=== PATIENT | female | born 1945 | race African-American/Black ===

== ENCOUNTER → 2016-12-30 11:00 | Outpatient (CLI) | payer MEDICARE ==
[2016-05-30 01:18] VITALS: BMI 29.7
[~2016-12-30 11:00] MED LIST: ALLER-CHLOR4 MG PO; ATIVAN0.5 MG PO; ATIVAN1 MG PO; BAYER CHEWABLE81 MG PO; CATAPRES TTS-10.1 MG TRANSDERM; CATAPRES0.1 MG PO; CATAPRES0.3 MG PO; CYMBALTA60 MG PO; DILAUDID2 MG PO; FLAGYL250 MG PO; HYDRALAZINE HCL25 MG PO; HYDRALAZINE HCL50 MG PO; K-TAB10 MEQ PO; LASIX20 MG PO; LEVAQUIN500 MG PO; LISINOPRIL10 MG PO; MEGACE40 MG PO; NEURONTIN 300300 MG PO; NICODERM C1 PATCH .1 TRANSDERM; NORVASC2.5 MG PO; NORVASC5 MG PO; OMEPRAZOLE20 M1 PO; OXYCONTIN10 MG PO; PERCOCET 10/3251 TA1 PO; PRILOSEC10 MG PO; PRILOSEC20 MG PO; REVLIMID5 MG PO; TENEX1 MG PO; TRANDATE200 MG PO; ULTRAM50 MG PO; ZESTRIL40 MG PO
== END | disposition home or self-care (01) ==
LOC: D.RAD 10:30
DX: D64.9 Anemia, unspecified (principal)

== ENCOUNTER 2017-03-31 16:35 | Inpatient (IN) | payer MEDICARE ==
[2017-03-31] VITALS (11 sets, daily range): BP systolic 123–148; BP diastolic 72–88; BMI 30.4
[~2017-03-31] VITALS: Ht 167.6 cm; Wt 86.8 kg
[2017-03-31 17:29] LABS: BASOPHILS 0.2 % (0-2); EOSINOPHILS 0.8 % (0-7); HEMATOCRIT 34.7 % (36.0-48.0); HEMOGLOBIN 11.7 g/dL (12-16); IMMATURE GRANULOCYTES 0.2 % (0-5); MCHC 33.7 g/dL (31.0-37.0); MEAN PLATELET VOLUME 9.7 fL (7.4-10.4); MONOCYTES 10.5 % (2-11); NEUTROPHILS 51.3 % (40-80); RBC 3.77 10x6/uL (4.00-5.40); RDW 13.5 % (11.5-14.5); WBC 6.6 10x3/uL (4.8-10.8)
[2017-03-31 17:30] LABS: PLATELET COUNT 282 10x3/uL (130-400)
[2017-03-31 17:51] LABS: ALBUMIN 3.2 g/dL (3.4-5.0); ANION GAP 9.1 mmol/L (8-16); BILIRUBIN - TOTAL 0.19 mg/dL (0.2-1.3); CALCIUM 10.7 mg/dL (8.5-10.1); CREATININE - SERUM 1.4 mg/dL (0.6-1.3); POTASSIUM - SERUM 3.1 mmol/L (3.5-5.1); PROTEIN - SERUM 8.6 g/dL (6.4-8.2)
--- NOTE | 2017-03-31 20:00 | NUR ---
PT ARRIVED VIA BED AND ER STAFF. AOX4. SWOLLEN TONGUE CAUSING SLURRED SPEECH. VSS. AEROSOL MASK @ 30%, SPO2 98. RESPIRATIONS NON LABORED. LUNG SOUNDS CLEAR/DIMINISHED. PERIPHERAL PULSES PRESENT. BOWEL SOUNDS ACTIVE IN ALL QUADS. PT REPOSITIONS SELF INDEPENDENTLY. PT DENIES NEEDS AT THIS TIME. CALL LIGHT AND BEDSIDE TABLE WITHIN PT REACH. CPOC.
--- NOTE | 2017-03-31 20:10 | NUR ---
DR. DEVINE AT BEDSIDE.
[2017-03-31] MEDS ORDERED: NORVASC5 MG PO (20:22)
--- NOTE | 2017-03-31 21:00 | NUR ---
LUNG SOUNDS REMAIN CLEAR/DIMINISHED. PT RESTING QUIETLY WITH EYES CLOSED AND VSS. NO S/S OF ACUTE DISTRESS AT THIS TIME. CALL LIGHT AND BEDSIDE TABLE WITHIN PT REACH. CPOC.
--- NOTE | 2017-03-31 23:30 | NUR ---
REASSESSMENT COMPLETE, SEE FLOWSHEET FOR ALL FINDINGS. NO ACUTE CHANGES AT THIS TIME. PT RESTING QUIETLY WITH EYES CLOSED AND VSS. LUNG SOUNDS CLEAR/DIMINSHED. SOP2 98. NO S/S OF DISTRESS AT THIS TIME. CALL LIGHT AND BEDSIDE TABLE WITHIN PT REACH. CPOC.
[2017-04-01] VITALS (26 sets, daily range): BP systolic 97–144; BP diastolic 58–84; Ht 167.6 cm; Wt 86.8 kg
--- NOTE | 2017-04-01 | NUR ---
PARTIAL LINEN CHANGE COMPLETE. VSS, NO S/S OF ACUTE DISTRESS AT THIS TIME. LUNG SOUNDS REMAIN CLEAR/DIMINISHED. CPOC
--- NOTE | 2017-04-01 01:00 | NUR ---
LUNG SOUNDS REMAIN CLEAR BILATERALLY. RESPIRATIONS NONLABORED, SPO2 99. NO S/S OF ACUTE DISTRESS AT THIS TIME. PARTIAL LINEN CHANGE COMPLETE AT THIS TIME. DENIES FURTHER NEEDS AT THIS TIME. CALL LIGHT AND BEDSIDE TABLE WITHIN PT REACH. CPOC.
--- NOTE | 2017-04-01 03:00 | NUR ---
REASSESSMENT COMPLETE, NO ACUTE CHANGES AT THIS TIME. LUNG SOUNDS CLEAR/DIMINISHED. SWELLING STARTING TO DECREASE IN TONGUE, SPEECH BECOMING MORE CLEAR. PT REPOSITIONED FOR COMFORT. DENIES FURTHER NEEDS AT THIS TIME. CALL LIGHT AND BEDSIDE TABLE WITHIN PT REACH. CPOC.
[2017-04-01 04:53] LABS: BASOPHILS 0 % (0-2); EOSINOPHILS 0 % (0-7); HEMATOCRIT 33.6 % (36.0-48.0); HEMOGLOBIN 11.2 g/dL (12-16); IMMATURE GRANULOCYTES 0.2 % (0-5); LYMPHOCYTES 17.9 % (15-50); MCH 30.8 pg (26.0-34.0); MCHC 33.3 g/dL (31.0-37.0); MCV 92.3 fL (80.0-100.0); MEAN PLATELET VOLUME 9.9 fL (7.4-10.4); MONOCYTES 0.6 % (2-11); NEUTROPHILS 81.3 % (40-80); PLATELET COUNT 259 10x3/uL (130-400); RBC 3.64 10x6/uL (4.00-5.40); RDW 13.3 % (11.5-14.5); WBC 6.3 10x3/uL (4.8-10.8)
[2017-04-01 05:29] LABS: C-REACTIVE PROTEIN 0.2 mg/dL (0.0-0.9); CALCIUM 9.9 mg/dL (8.5-10.1); CARBON DIOXIDE 29.9 mmol/L (21.0-32.0); CHLORIDE - SERUM 103 mmol/L (98-107); CREATININE - SERUM 1.4 mg/dL (0.6-1.3); MAGNESIUM - SERUM 1.6 mg/dL (1.8-2.4); PHOSPHOROUS 4.2 mg/dL (2.5-4.9); PRO BNP 140 pg/mL (0-125); SODIUM 142 mmol/L (136-145); UREA NITROGEN 10 mg/dL (7-18); eGFR NON AFRICAN AMERICAN 39 mL/min (90-120)
[2017-04-01 05:32] LABS: CALC OSMOLALITY 285 mosm/kg (275-300); GLUCOSE 166 mg/dL (74-106); POTASSIUM - SERUM 2.9 mmol/L (3.5-5.1); TROPONIN-I < 0.017 ng/mL (0.000-0.060)
--- NOTE | 2017-04-01 07:20 | NUR ---
RT AT BEDSIDE FOR EKG.
--- NOTE | 2017-04-01 07:30 | NUR ---
SHIFT ASSESSMENT VIA FLOWSHEET, SEE FOR DETAILS.
[2017-04-01 07:33] LABS: ERYTHROCYTE SEDIMENTATION RATE 71 mm/hr (0-30)
--- NOTE | 2017-04-01 09:05 | NUR ---
NO VISITORS AT THIS TIME. PT REPOSTIONS INDEPENDENTLY IN BED. VOICES NO ADDITIONAL NEEDS AT THIS TIME.
--- NOTE | 2017-04-01 09:40 | NUR ---
AEROSOL MASK D/C'D PER DR ROJAS. PT ON ROOM AIR. SPO2 100%, WILL PROVIDE SUPPLEMENTAL O2 PRN.
--- NOTE | 2017-04-01 12:00 | NUR ---
REASSESSMENT VIA FLOWSHEET, SEE FOR DETAILS.
--- NOTE | 2017-04-01 12:12 | NUR ---
NO VISITORS AT THIS TIME. LUNCH TRAY PROVIDED, PT INDICATES SHE ONLY WANTS TO DRINK ENSURE. VSS.
--- NOTE | 2017-04-01 15:30 | NUR ---
REASSESSMENT VIA FLOWSHEET, SEE FOR DETAILS.
--- NOTE | 2017-04-01 16:40 | NUR ---
DINNER TRAY PROVIDED. VSS, ON CM.
--- NOTE | 2017-04-01 19:00 | NUR ---
REPORT RECEIVED AND ASSESSMENT COMPLETED. PT IN ROOM WATCHING TV. NO SIGNS OF RESPIRATORY DISTRESS. O2 AT 975 ON ROOM AIR. MINIMAL SWELLING NOTED. LUNG SOUNDS CLEAR. DIMINISHED IN LOWER LOBES. VSS. WILL CONTINUE TO MONITOR FOR COMPLICATIONS THROUGHOUT THE SHIFT
--- NOTE | 2017-04-01 21:00 | NUR ---
COMPLETE BEDBATH AND LINEN CHANGE PROVIDED. NO OTHER CHANGES IN STATUS AT THIS TIME,. VSS WILL CONTINUE TO MONITOR THROUGHOUT SHIFT.
--- NOTE | 2017-04-01 23:05 | NUR ---
REASSESSMENT COMPLETED. SEE FLOWSHEET FOR FULL DETAILS. VSS. WILL CONTINUE TO MONITOR THROUGHOUT SHIFT
[2017-04-02] VITALS (13 sets, daily range): BP systolic 106–141; BP diastolic 54–83
--- NOTE | 2017-04-02 01:00 | NUR ---
ASSISTED PT TO BRATHROOM. NO OTHER CHANGES IN STATUS AT THIS TIME. VSS. WILL CONTINUE TO MONITOR
--- NOTE | 2017-04-02 03:00 | NUR ---
REASSESSMENT [id number]. SEE FLOWSHEET FOR FULL DETAILS. NO OTHER CHANGES IN STATUS AT THIS TIME. VSS. WILL MONITOR
[2017-04-02 04:56] LABS: BASOPHILS 0 % (0-2); EOSINOPHILS 0 % (0-7); HEMOGLOBIN 10.8 g/dL (12-16); IMMATURE GRANULOCYTES 0.3 % (0-5); LYMPHOCYTES 6.1 % (15-50); MCH 31.3 pg (26.0-34.0); MCHC 33.8 g/dL (31.0-37.0); MCV 92.8 fL (80.0-100.0); MEAN PLATELET VOLUME 9.4 fL (7.4-10.4); MONOCYTES 3.6 % (2-11); PLATELET COUNT 261 10x3/uL (130-400); RBC 3.45 10x6/uL (4.00-5.40); RDW 13.6 % (11.5-14.5)
[2017-04-02 04:57] LABS: WBC 15.4 10x3/uL (4.8-10.8)
--- NOTE | 2017-04-02 05:00 | NUR ---
LABS DRAWN AND SENT OFF. AWAITING RESULTS FOR ELECTROLYTE PROTOCOL. PT HAS SLEPT QUIETLY THROUGH EVENING ONLY GETTING UP TO VOID. PT HAS GOTTEN UP TO USE RESTROOM INDEPENDENTLY DESPITE BEING DIRECTED OTHERWISE. BED ALARM ON. WILL MONITOR CLOSELY
[2017-04-02 05:18] LABS: ANION GAP 10.8 mmol/L (8-16); CARBON DIOXIDE 28.6 mmol/L (21.0-32.0); CREATININE - SERUM 1.2 mg/dL (0.6-1.3); POTASSIUM - SERUM 3.4 mmol/L (3.5-5.1)
[2017-04-02 05:20] LABS: PHOSPHOROUS 1.9 mg/dL (2.5-4.9)
--- NOTE | 2017-04-02 07:40 | NUR ---
UP TO CHAIR FOR BREAKFAST AFTER ASSISTING TO BATHROOM. DENIES FURTHER NEEDS.
--- NOTE | 2017-04-02 10:39 | NUR ---
* Is the patient Alert and Oriented? Yes 0 * How many steps to enter\exit or inside your home? 0 0 * PCP Dr. Wyatt 0 * Pharmacy [facility] by the track 0 * Preadmission Environment Home with Family 0 * ADLs Independent 0 * Equipment Cane 0 * List name and contact numbers for known caregivers / representatives who currently or will assist patient after discharge: Edgard Au [phone] 0 * Additional services required to return to the preadmission environment? No 0 * Can the patient safely return to the preadmission environment? Yes 0 * Has this patient been hospitalized within the prior 30 days at any hospital? No 04/02/2017 10:32 DCP: Discharge Planning Patient Name: MAGDIEL STAFFORD Admission Status: ER Accout number: [id number] Admission Date: 04-01-2017 : 1945 Admission Diagnosis: Attending: JD Current LOS: 1 Anticipated DC Date: 04-03-2017 Planned Disposition: Home Primary Insurance: [employer] CHO[employer] PPO [facility] Discharge Planning Comments: CM met with patient to assess dc plans/needs. Patient states she lives at home with her adult daughter. She is independent with all ADL's & IADL's. She uses a cane for assistance with mobility. She has not had home health services in the past. At dc, she will return home with her daughter. No needs identified or verbalized at this time. CM will follow. Manager Consumer Insights: Veronica Dunham
--- NOTE | 2017-04-02 12:36 | NUR ---
REMAINS UP IN CHAIR FOR LUNCH.
--- NOTE | 2017-04-02 14:16 | NUR ---
Nutrition follow-up: Diet: low sodium 4 gm PO intake 25-50% of meals Labs reviewed RDN following.
--- NOTE | 2017-04-02 19:30 | NUR ---
REPORT RECVD. CARE ASSUMED. INITIAL ASSMNT COMPLETED. SEE FLOWSHEET FOR ALL FINDINGS. AWAKE AND AOX4. RESP EVEN AND UNLABORE. SPO2 95% ON ROOM AIR. OCC PROD COUGH NOTED. AFEBRILE. SR ON THE MONITOR. UP WITH MINIMAL ASSIST TO BR. VSS. DENIES NEEDS. HOB UP. C/L IN REACH. BED ALARM ON. REPOSITIONS INDEPENDENTLY IN BED. CONT CURRENT POC.
--- NOTE | 2017-04-02 21:30 | NUR ---
HS MEDS GIVEN. FAMILY AT BEDSIDE. UPDATE GIVEN. TEACHING DONE. VSS. HOB UP. C/L IN REACH. CONT CURRENT POC.
--- NOTE | 2017-04-02 23:45 | NUR ---
USING C/L TO REQUEST ASSIST TO BR TO VOID. PRN TRAMADOL EFFECTIVE WITH PAIN CONTROL. VSS. POSITIONS SELF IN BED. HOB UP. C/L IN REACH. CONT CURRENT POC.
[2017-04-03] VITALS: BP 148/80
--- NOTE | 2017-04-03 01:00 | NUR ---
RESTING WITH NO DISTRESS. NO NEEDS VOICED. C/L IN REACH. VSS. CONT POC.
[2017-04-03 03:00] VITALS: BP 152/86
--- NOTE | 2017-04-03 03:48 | NUR ---
RESTING IN BED WITH NO DISTRESS. USING C/L TO WAIT FOR MINIMAL ASSIST TO BR TO COID NO DIFF. VSS. HOB UP. C/L IN REACH. CONT CURRENT POC.
--- NOTE | 2017-04-03 05:35 | NUR ---
UP TO BR TO VOID. MINIMAL ASSIST. VSS. DENIES NEEDS. HOB UP. C/L IN REACH. CONT CURRENT POC.
[2017-04-03 05:57] LABS: BASOPHILS 0 % (0-2); EOSINOPHILS 0 % (0-7); HEMATOCRIT 32.9 % (36.0-48.0); HEMOGLOBIN 11.1 g/dL (12-16); IMMATURE GRANULOCYTES 0.3 % (0-5); LYMPHOCYTES 18.5 % (15-50); MCH 31.3 pg (26.0-34.0); MCHC 33.7 g/dL (31.0-37.0); MCV 92.7 fL (80.0-100.0); MEAN PLATELET VOLUME 9.7 fL (7.4-10.4); MONOCYTES 8.6 % (2-11); NEUTROPHILS 72.6 % (40-80); PLATELET COUNT 270 10x3/uL (130-400); RBC 3.55 10x6/uL (4.00-5.40); RDW 13.8 % (11.5-14.5); WBC 15.4 10x3/uL (4.8-10.8)
[2017-04-03 06:08] LABS: ANION GAP 10.6 mmol/L (8-16); CALCIUM 8.8 mg/dL (8.5-10.1); CARBON DIOXIDE 28.5 mmol/L (21.0-32.0); PHOSPHOROUS 2.1 mg/dL (2.5-4.9); POTASSIUM - SERUM 3.1 mmol/L (3.5-5.1)
--- NOTE | 2017-04-03 06:26 | NUR ---
PO K+ GIVEN PER ELECTROLYTE PROTOCOL
--- NOTE | 2017-04-03 06:40 | NUR ---
PO PHOS GIVEN
[2017-04-03 07:00] VITALS: BP 146/86
--- NOTE | 2017-04-03 08:33 | EC ---
PATIENT:MAGDIEL STAFFORD DATE OF SERVICE: 04/01/17 SEX: F MEDICAL RECORD: [id number] DATE OF : 43 LOCATION:[place] [address] AGE OF PATIENT: 71 ADMISSION DATE: 04/01/17 REFERRING PHYSICIAN: INTERPRETING PHYSICIAN: CHANO MOROCHO MD ECHOCARDIOGRAM REPORT ECHO CHARGES 4 ECHO COMPLETE CLINICAL DIAGNOSIS: SOB HX OF CAD/STENT/HTN ECHOCARDIOGRAPHIC MEASUREMENTS (adult normal given) AC root (d.<3.7cm) 3.6 LV Septum d (<1.2 cm> 1.6 Valve Excursion 2.0 LV Septum (systole) 1.8 Left Atria (s.<4.0cm> 3.7 LVPW d(<1.2cm) 1.6 RV (d.<2.3cm) 3.0 LVPW (sytole) 1.9 LV diastole(<5.6CM) 4.3 MV E-F(>70mm/sec) LV systole 2.7 LVOT Diameter 1.5 MV exc.(>10mm) Est.ejection fraction (50-75%) Pericardial Effusion N DOPPLER: LVIT A 112 E 71.0 LA RVSP 21 LVOT 116 AOP1/2T Asc. Ao 149 RVOT 121 RA PA 115 AV Gradient Peak 8.89 AV Mean 4.24 AV Area 1.5 MV Gradient Peak 7.55 MV Mean 3.65 MV Area COMMENTS: Marble Machine Operator: Girma PERERA Safety Relief Valve Technician:1 Dr. Morocho TAPE# PACS TWO-DIMENSIONAL ECHOCARDIOGRAM WITH DOPPLER 1. Left ventricular chamber size is within normal limits. Left ventricular systolic function is normal. Overall ejection fraction is estimated at 60 percent. 2. Left atrium, right atrium, and right ventricular chamber sizes are within normal limits. 3. Valvular structures have normal structure and motion. 4. Doppler interrogation reveals trace to mild mitral regurgitation, trace to mild tricuspid regurgitation; no other valvular insufficiency or stenosis. 5. No evidence of pericardial effusion or left ventricular thrombus. ECHOCARDIOGRAM REPORT [id number] MAGDIEL STAFFORD CHANO EGAN MD at 0833 CC: [id number] DICTATION DATE: 04/02/172100 DRY END TESTER: ROSARIO 04/02/17 2100 ADM IN [facility] [address] [facility] [place] [address]
[2017-04-03] MEDS ORDERED: PREDNISONE20 MG PO (11:29)
--- NOTE | 2017-04-03 11:57 | NUR ---
IP DEACCESSED. DC REVIEWED WITH PT AND DAUGHTER. NO QUESTIONS. PT DC'D HOME.
== END 2017-04-03 12:17 | disposition home or self-care (01) | DRG 918 ==
LOC: D.ER 16:35 → D.CVICU 18:34 → OBSVTIME 18:34 → D.CVICU 18:34
PROVIDERS: Emergency Medicine; Internal Medicine Pulmonary Disease; ADMIT Emergency Medicine
DX: T44.5X5A Adverse effect of predominantly beta-adrenoreceptor agonists, initial encounter (principal); I13.0 Hypertensive heart and chronic kidney disease with heart failure and stage 1 through stage 4 chronic kidney disease, or unspecified chronic kidney disease; I50.32 Chronic diastolic (congestive) heart failure; T78.3XXA Angioneurotic edema, initial encounter; N18.9 Chronic kidney disease, unspecified; K21.9 Gastro-esophageal reflux disease without esophagitis; I25.10 Atherosclerotic heart disease of native coronary artery without angina pectoris; E87.6 Hypokalemia; D64.9 Anemia, unspecified; J44.9 Chronic obstructive pulmonary disease, unspecified; E83.42 Hypomagnesemia; Z85.79 Personal history of other malignant neoplasms of lymphoid, hematopoietic and related tissues; Z87.891 Personal history of nicotine dependence

== ENCOUNTER 2017-05-14 05:21 | Outpatient (CLI) | payer MEDICARE ==
[~2017-05-14] VITALS: Ht 167.6 cm; Wt 85.5 kg
[~2017-05-14 05:21] MED LIST changes: +PREDNISONE20 MG PO
[2017-05-14 06:21] VITALS: BP 117/71; Ht 167.6 cm; Wt 85.5 kg
[2017-05-14 07:42] LABS: BASOPHILS 0.3 % (0-2); EOSINOPHILS 1.8 % (0-7); HEMATOCRIT 32.9 % (36.0-48.0); HEMOGLOBIN 10.9 g/dL (12-16); IMMATURE GRANULOCYTES 0.2 % (0-5); LYMPHOCYTES 42.1 % (15-50); MCH 29.5 pg (26.0-34.0); MCHC 33.1 g/dL (31.0-37.0); MCV 89.2 fL (80.0-100.0); MEAN PLATELET VOLUME 9.8 fL (7.4-10.4); MONOCYTES 11.5 % (2-11); NEUTROPHILS 44.1 % (40-80); PLATELET COUNT 252 10x3/uL (130-400); RBC 3.69 10x6/uL (4.00-5.40); RDW 14.9 % (11.5-14.5); WBC 6.1 10x3/uL (4.8-10.8)
[2017-05-14 07:51] LABS: ANION GAP 10.4 mmol/L (8-16); CALCIUM 8.4 mg/dL (8.5-10.1); CARBON DIOXIDE 26.1 mmol/L (21.0-32.0); CREATININE - SERUM 1.3 mg/dL (0.6-1.3); POTASSIUM - SERUM 3.5 mmol/L (3.5-5.1)
[2017-05-14 08:04] LABS: APTT 30.9 SECONDS (22.8-39.4); INR 1.07 (0.85-1.17); PROTIME 13.8 SECONDS (11.6-15.0)
--- NOTE | 2017-05-14 12:55 | NUR ---
SEE PAPER CHART POST PROCEDURE FOR VITAL SIGNS
== END 2017-05-14 12:55 | disposition home or self-care (01) ==
LOC: D.OPS 05:21
PROVIDERS: Internal Medicine Medical Oncology
DX: C90.00 Multiple myeloma not having achieved remission (principal); N18.3 Chronic kidney disease, stage 3 (moderate); Z01.812 Encounter for preprocedural laboratory examination

== ENCOUNTER → 2017-12-01 12:12 | Outpatient (CLI) | payer MEDICARE ==
[2017-05-14 06:21] VITALS: BMI 30.4
== END | disposition home or self-care (01) ==
LOC: D.RAD 11-29 15:30
DX: C90.00 Multiple myeloma not having achieved remission (principal); D64.81 Anemia due to antineoplastic chemotherapy; D63.1 Anemia in chronic kidney disease

== ENCOUNTER 2018-04-11 05:40 | Outpatient (CLI) | payer MEDICARE ==
[~2018-04-11] VITALS: Ht 167.6 cm; Wt 83.2 kg
[2018-04-11 06:08] LABS: BASOPHILS 0.2 % (0-2); EOSINOPHILS 1.4 % (0-7); HEMATOCRIT 35.7 % (36.0-48.0); HEMOGLOBIN 12.3 g/dL (12-16); IMMATURE GRANULOCYTES 0.2 % (0-5); LYMPHOCYTES 49.3 % (15-50); MCH 31.5 pg (26.0-34.0); MCHC 34.5 g/dL (31.0-37.0); MCV 91.3 fL (80.0-100.0); MEAN PLATELET VOLUME 9.8 fL (7.4-10.4); MONOCYTES 9.6 % (2-11); NEUTROPHILS 39.3 % (40-80); PLATELET COUNT 247 10x3/uL (130-400); RBC 3.91 10x6/uL (4.00-5.40); RDW 14.3 % (11.5-14.5); WBC 6.3 10x3/uL (4.8-10.8)
[2018-04-11 06:20] LABS: ANION GAP 13.6 mmol/L (8-16); CALCIUM 8.7 mg/dL (8.5-10.1); CARBON DIOXIDE 24.7 mmol/L (21.0-32.0); CREATININE - SERUM 1.1 mg/dL (0.6-1.3); POTASSIUM - SERUM 3.3 mmol/L (3.5-5.1)
[2018-04-11 06:25] LABS: APTT 31.3 SECONDS (22.8-39.4); INR 0.97 (0.85-1.17); PROTIME 12.5 SECONDS (11.6-15.0)
[2018-04-11 07:20] VITALS: BP 115/63; Ht 167.6 cm; Wt 83.2 kg
[2018-04-11] MEDS ORDERED: LYRICA50 MG PO (07:29)
== END 2018-04-11 11:45 | disposition home or self-care (01) ==
LOC: D.SP 05:40
PROVIDERS: General Practice
DX: C90.00 Multiple myeloma not having achieved remission (principal); Z01.812 Encounter for preprocedural laboratory examination

== ENCOUNTER 2018-08-15 06:02 | Outpatient (CLI) | payer MEDICARE ==
[~2018-08-15] VITALS: Ht 167.6 cm; Wt 79.5 kg
[~2018-08-15 06:02] MED LIST changes: +LYRICA50 MG PO
[2018-08-15 06:37] LABS: BASOPHILS 0.5 % (0-2); EOSINOPHILS 1.6 % (0-7); HEMATOCRIT 38.8 % (36.0-48.0); HEMOGLOBIN 13.6 g/dL (12-16); IMMATURE GRANULOCYTES 0.3 % (0-5); MCH 31.9 pg (26.0-34.0); MCHC 35.1 g/dL (31.0-37.0); MCV 91.1 fL (80.0-100.0); MEAN PLATELET VOLUME 9.8 fL (7.4-10.4); NEUTROPHILS 47.6 % (40-80); PLATELET COUNT 245 10x3/uL (130-400); RBC 4.26 10x6/uL (4.00-5.40); RDW 13.9 % (11.5-14.5); WBC 6.3 10x3/uL (4.8-10.8)
[2018-08-15 06:51] LABS: ANION GAP 12.6 mmol/L (8-16); CALCIUM 10.6 mg/dL (8.5-10.1); CARBON DIOXIDE 26.4 mmol/L (21.0-32.0)
[2018-08-15 06:57] LABS: APTT 30.5 SECONDS (22.8-39.4); INR 1.01 (0.85-1.17)
[2018-08-15] MEDS ORDERED: XANAX0.25 MG PO (07:05)
[2018-08-15] MEDS ORDERED: NEURONTIN 300300 MG PO (07:06)
[2018-08-15 07:14] VITALS: Ht 167.6 cm; Wt 79.5 kg
== END 2018-08-15 14:05 | disposition home or self-care (01) ==
LOC: D.CT 06:02
PROVIDERS: General Practice
DX: R91.8 Other nonspecific abnormal finding of lung field (principal)

== ENCOUNTER → 2018-09-07 08:49 | Outpatient (CLI) | payer MEDICARE ==
[2018-08-15 07:14] VITALS: BMI 28.3
--- NOTE | ~2018-09-07 | EC ---
PATIENT:MAGDIEL STAFFORD DATE OF SERVICE: 09/07/18 SEX: F MEDICAL RECORD: [id number] DATE OF : 43 LOCATION:D.[facility] AGE OF PATIENT: 73 ADMISSION DATE: 09/07/18 REFERRING PHYSICIAN: INTERPRETING PHYSICIAN: CHANO MOROCHO MD ECHOCARDIOGRAM REPORT ECHO CHARGES 4 ECHO COMPLETE Date: 09/07/18 CLINICAL DIAGNOSIS: LUNG CANCER ECHOCARDIOGRAPHIC MEASUREMENTS (adult normal given) AC root (d.<3.7cm) 3.9 cm LV Septum d (<1.2 cm> 1.4 cm Valve Excursion 2.0 cm LV Septum (systole) 1.8 cm Left Atria (s.<4.0cm> 3.3 cm LVPW d(<1.2cm) 1.5 cm RV (d.<2.3cm) 2.4 cm LVPW (sytole) 2.0 cm LV diastole(<5.6CM) 4.0 cm MV E-F(>70mm/sec) cm LV systole 2.2 cm LVOT Diameter 1.8 cm MV exc.(>10mm) cm Est.ejection fraction (50-75%) % DOPPLER: LVIT cm/sec A 90.0 cm/sec E 39.0 cm/sec LA cm/sec RVSP 23.0 mmHg LVOT 86.0 cm/sec AOP1/2T m/s Asc. Ao 142 cm/sec RVOT 72.0 cm/sec RA cm/sec PA 79.0 cm/sec AV Gradient Peak 8.1 mmHg AV Mean 4.5 mmHg AV Area 1.8 cm MV Gradient Peak 3.8 mmHg MV Mean 1.0 mmHg MV Area cm COMMENTS: Ms Sql Developer: 1 DC MUÑOZOE Periodicals Library Assistant: 1 Dr. Morocho TAPE# PACS Pericardial Effusion N DATE OF SERVICE: FINDINGS: 1. Left ventricular chamber size is within normal limits. Left ventricular systolic function is mildly depressed. Overall ejection fraction in the 40% range. 2. Left atrium, right atrium and right ventricular chamber sizes are within normal limits. 3. Valvular structures have normal structure and motion. 4. Doppler interrogation reveals mild aortic insufficiency, moderate mitral ECHOCARDIOGRAM REPORT [id number] MAGDIEL STAFFORD regurgitation, moderate tricuspid regurgitation. No other valvular insufficiency or stenosis. Pulmonary systolic pressure is preserved at 23 mmHg. 5. No evidence of pericardial effusion or left ventricular thrombus. TRANSINT:[id number] Voice Confirmation ID: [id number] DOCUMENT ID: [id number] CHANO MOROCHO MD at 0941 CC: [id number] DICTATION DATE: 09/08/18 1246 EDUCATION TRAINER: 09/08/18 1433 DEP CLI 09/07/18 [facility] [address] [place] [id number]
[~2018-09-07 08:49] MED LIST changes: +XANAX0.25 MG PO
== END | disposition home or self-care (01) ==
LOC: D.RT 08:49
DX: C34.90 Malignant neoplasm of unspecified part of unspecified bronchus or lung (principal)

== ENCOUNTER → 2018-09-14 13:24 | Outpatient (CLI) | payer MEDICARE ==
[2018-08-15 07:14] VITALS: BMI 28.3
== END | disposition home or self-care (01) ==
LOC: D.NM 09:30
DX: C34.30 Malignant neoplasm of lower lobe, unspecified bronchus or lung (principal)

== ENCOUNTER 2019-04-29 17:17 | Outpatient (CLI) | payer MEDICARE ==
[~2019-04-29] VITALS: Ht 167.6 cm; Wt 81.8 kg
--- NOTE | 2019-04-29 15:30 | NUR ---
RECEIVED PT TO ROOM 1212 VIA WHEELCHAIR, PT A/O X4, RESP EVEN AND NONLABORED ON RA. ORIENTED PT TO ROOM AND CALL LIGHT, WILL ASSESS PT AND START PLAN OF CARE.
[2019-04-29 18:24] VITALS: BP 130/77; Ht 167.6 cm; Wt 81.8 kg
[2019-04-29 19:26] LABS: HEMATOCRIT 36.3 % (36.0-48.0); HEMOGLOBIN 12.6 g/dL (12-16); MCH 30.1 pg (26.0-34.0); MCHC 34.7 g/dL (31.0-37.0); MCV 86.6 fL (80.0-100.0); MEAN PLATELET VOLUME 9.9 fL (7.4-10.4); PLATELET COUNT 232 10x3/uL (130-400); RBC 4.19 10x6/uL (4.00-5.40); RDW 15.7 % (11.5-14.5); WBC 6.3 10x3/uL (4.8-10.8)
--- NOTE | 2019-04-29 19:30 | NUR ---
PT RESTING SUPINE IN BED UPON ENETERING, HIGH SCHOOL PRINCIPAL, BRETT AT BEDSIDE ACCESSING PT PORT. PT DENEIS ANY NEEDS AT THIS TIME. BED IN LOWEST POSITON, BED RAILS X2, CALL LIGHT WITHIN REACH. WILL CONTINUE TO MONITOR.
[2019-04-29 19:50] LABS: EOSINOPHILS 2 % (0-7); LYMPHOCYTES 41 % (15-50); MONOCYTES 9 % (2-11); NEUTROPHILS 48 % (40-80); PLATELET ESTIMATE NORMAL
[2019-04-29 20:02] LABS: ALBUMIN 3.5 g/dL (3.4-5.0); ANION GAP 15.5 mmol/L (8-16); BILIRUBIN - TOTAL 0.13 mg/dL (0.2-1.3); CALCIUM 9.6 mg/dL (8.5-10.1); CARBON DIOXIDE 25.9 mmol/L (21.0-32.0); POTASSIUM - SERUM 3.4 mmol/L (3.5-5.1); PROTEIN - SERUM 8.5 g/dL (6.4-8.2)
--- NOTE | 2019-04-29 20:04 | NUR ---
ASSISTED PT TO BATHROOM AND BACK TO BED. DENIES ANY OTHER NEEDS AT THIS TIME. WILL CONTINUE TO MONITOR.
[2019-04-29 20:16] VITALS: BP 154/81
== END 2019-04-29 20:48 | disposition home or self-care (01) ==
LOC: D.M3 17:17 → D.OPS 17:17
PROVIDERS: ATTEND Internal Medicine
DX: E86.0 Dehydration (principal)

== ENCOUNTER 2019-05-12 17:36 | Emergency (ER) | payer MEDICARE ==
[~2019-05-12] VITALS: Ht 167.6 cm; Wt 81.8 kg
[2019-05-12 17:48] VITALS: Ht 167.6 cm; Wt 81.8 kg
[2019-05-12 18:33] LABS: BASOPHILS 0.1 % (0-2); EOSINOPHILS 0.4 % (0-7); HEMATOCRIT 35.3 % (36.0-48.0); HEMOGLOBIN 12.4 g/dL (12-16); IMMATURE GRANULOCYTES 0.2 % (0-5); MCH 30.8 pg (26.0-34.0); MCHC 35.1 g/dL (31.0-37.0); MCV 87.8 fL (80.0-100.0); MEAN PLATELET VOLUME 9.4 fL (7.4-10.4); MONOCYTES 10.9 % (2-11); NEUTROPHILS 77.4 % (40-80); PLATELET COUNT 237 10x3/uL (130-400); RBC 4.02 10x6/uL (4.00-5.40); RDW 14.9 % (11.5-14.5); WBC 12.2 10x3/uL (4.8-10.8)
[2019-05-12 18:46] LABS: INR 1.02 (0.85-1.17); PROTIME 12.9 SECONDS (11.6-15.0)
[2019-05-12 18:51] LABS: APTT 22.2 SECONDS (22.8-39.4)
[2019-05-12 18:56] LABS: ALBUMIN 3.2 g/dL (3.4-5.0); ALKALINE PHOSPHATASE 76 U/L (46-116); ALT (SGPT) 13 U/L (10-68); BILIRUBIN - TOTAL 0.22 mg/dL (0.2-1.3); CALC OSMOLALITY 276 mosm/kg (275-300); CALCIUM 9.3 mg/dL (8.5-10.1); CARBON DIOXIDE 26.7 mmol/L (21.0-32.0); CHLORIDE - SERUM 101 mmol/L (98-107); GLUCOSE 126 mg/dL (74-106); POTASSIUM - SERUM 3.4 mmol/L (3.5-5.1); PROTEIN - SERUM 8.1 g/dL (6.4-8.2); SODIUM 138 mmol/L (136-145); UREA NITROGEN 10 mg/dL (7-18); eGFR NON AFRICAN AMERICAN 57 mL/min (90-120)
[2019-05-12 19:08] LABS: CKMB 0.2 U/L (0.0-3.6); CREATINE KINASE 50 UL (21-215); MAGNESIUM - SERUM 2.1 mg/dL (1.8-2.4); TROPONIN-I < 0.017 ng/mL (0.000-0.060)
[2019-05-12] MEDS ORDERED: ALBUTEROL SULF8.5 GM INH (20:28)
[2019-05-12] MEDS ORDERED: VIBRAMYCIN 100100 MG PO (20:28)
[2019-05-12 20:54] VITALS: BP 122/73
== END 2019-05-12 20:54 | disposition home or self-care (01) ==
LOC: D.ER 17:36
PROVIDERS: Family Medicine
DX: R07.81 Pleurodynia (principal); Z85.118 Personal history of other malignant neoplasm of bronchus and lung; R06.02 Shortness of breath

== ENCOUNTER 2020-03-11 15:29 | Outpatient (CLI) | payer MEDICARE ==
[~2020-03-11] VITALS: Ht 167.6 cm; Wt 69.1 kg
[~2020-03-11 15:29] MED LIST changes: +ALBUTEROL SULF8.5 GM INH; +VIBRAMYCIN 100100 MG PO
[2020-03-11 17:26] VITALS: Ht 167.6 cm; Wt 69.1 kg
--- NOTE | 2020-03-11 18:30 | NUR ---
PATIENT TOLERATING TRANSFUSION OF PRBC'S, DENIES UNTOWARD SYMPTOMS
--- NOTE | 2020-03-11 19:40 | NUR ---
JUST UNIT OF PRBC'S IS FINISHING, PATIENT COMPLAINS OF BEING DIAPHORETIC AND BLOOD PRESSURE IS REGISTERED AT 169/111. HR 121, RR 22, TEMPT 97.5, O2 SAT 97%. DR ROJAS, WHO IS RECORDS SPECIALIST FOR DR JANNETH HARRISON [address] ROJAS, REPORT GIVEN OF PATIENT'S VITAL SIGNS, ORDER RECEIVED FOR METOPROLOL 25 MG PO ONE TIME, DR ROJAS STATES PATIENT MAY BE DISCHARGED IN 15 MINUTES IF BLOOD PRESSURE BETTER
--- NOTE | 2020-03-11 20:55 | NUR ---
BP 145/95, HR 102, RR 18, TEMP 98.0 PATIENT DENIES ANY UNTOWARD SYMPTOMS. DISCHARGED HOME VIA WHEELCHAIR TO PRIVATE VEHICLE WITH NIECE AFTER DISCHARGE INSTRUCTIONS INCLUDING POST TRANSFUSION INSTRUCTIONS REVIEWED WITH PATIENT
== END 2020-03-11 20:57 | disposition home or self-care (01) ==
LOC: D.OPS 15:29
PROVIDERS: ATTEND Internal Medicine Medical Oncology
DX: D50.9 Iron deficiency anemia, unspecified (principal); K90.9 Intestinal malabsorption, unspecified

== ENCOUNTER 2020-04-25 17:40 | Emergency (ER) | payer MEDICARE ==
[~2020-04-25] VITALS: Ht 167.6 cm; Wt 63.6 kg
[2020-04-25 18:00] VITALS: Ht 167.6 cm; Wt 63.6 kg
[2020-04-25 18:43] LABS: BASOPHILS 0.3 % (0-2); EOSINOPHILS 2.9 % (0-7); HEMATOCRIT 24.6 % (36.0-48.0); HEMOGLOBIN 7.6 g/dL (12-16); IMMATURE GRANULOCYTES 0.3 % (0-5); LYMPHOCYTES 18.1 % (15-50); MCH 30.6 pg (26.0-34.0); MCHC 30.9 g/dL (31.0-37.0); MCV 99.2 fL (80.0-100.0); MEAN PLATELET VOLUME 9.7 fL (7.4-10.4); MONOCYTES 12.4 % (2-11); RBC 2.48 10x6/uL (4.00-5.40); RDW 20.1 % (11.5-14.5)
[2020-04-25 18:44] LABS: PLATELET COUNT 165 10x3/uL (130-400)
[2020-04-25 18:50] LABS: CARBON DIOXIDE 27.5 mmol/L (21.0-32.0); CREATININE - SERUM 1.3 mg/dL (0.6-1.3); POTASSIUM - SERUM 3.5 mmol/L (3.5-5.1)
[2020-04-25 18:57] LABS: ALBUMIN 1.8 g/dL (3.4-5.0); BILIRUBIN - TOTAL 0.23 mg/dL (0.2-1.3); PROTEIN - SERUM 7.5 g/dL (6.4-8.2)
[2020-04-26 01:30] VITALS: BP 141/87
== END 2020-04-26 02:15 | disposition home or self-care (01) ==
LOC: D.ER 17:40
PROVIDERS: Family Medicine
DX: D64.9 Anemia, unspecified (principal); R55 Syncope and collapse; C34.90 Malignant neoplasm of unspecified part of unspecified bronchus or lung; I10 Essential (primary) hypertension; K21.9 Gastro-esophageal reflux disease without esophagitis